=== PATIENT | female | born 1945 | race Caucasian/White ===

== ENCOUNTER 2025-07-29 15:13 | Inpatient (IN) | payer MEDICARE, MEDICAID ==
[~2025-07-29] VITALS: Ht 162.6 cm; Wt 56.7 kg
[~2025-07-29 15:13] MED LIST: BISA10SU62 RC; FAMO20TA8 PO; FERR325T6 MT; LEVO25TA7 MT; LIDO700A30 TP; POLY17PO3 MT; TOPUD PO; TRAM50TA3 MT
[2025-07-29 15:17] VITALS: O2SAT 95
[2025-07-29 16:40] LABS: BASOPHILS % 0.2 % (0.0-2.0); EOSINOPHILS % 3.6 % (0.0-5.0); HEMATOCRIT. 34.8 % (36.0-48.0); HEMOGLOBIN. 11.3 g/dL (12.0-16.0); LYMPHOCYTES % 11.7 % (20.0-50.0); MEAN PLATELET VOLUME 7.3 fl (7.4-10.4); MONOCYTES % 5.2 % (2.0-8.0); NEUTROPHILS % 79.3 % (40.0-76.0); PLATELET 271 x1000/uL (130-400); RED BLOOD CELL COUNT 3.74 mill/uL (4.2-5.4); RED CELL DISTRIBUTION WIDTH 16.5 % (11.6-14.6)
[2025-07-29 16:57] LABS: CREATININE 1.2 mg/dL (0.6-1.0); PROTEIN TOTAL 6.8 g/dL (6.0-8.3); UREA NITROGEN BLOOD 33 mg/dL (9-23)
[2025-07-29 16:59] LABS: ASPARTATE AMINOTRANSFERASE 12 IU/L (<34); BILIRUBIN TOTAL 0.3 mg/dL (0.1-1.0)
[2025-07-29 20:00] VITALS: BP 101/56; PULSE 82; RESP 18; TEMP 36.4; O2SAT 97
[2025-07-29 20:45] VITALS: BP 101/56; PULSE 82; RESP 18; TEMP 36.418
[2025-07-29] MEDS ORDERED: DOCUSATE SODIUM 100MG CAPSULE PO PRN (21:00)
[2025-07-29] MEDS ORDERED: ONDANSETRON HCL 4MG/2ML INJ IV PRN (21:00)
[2025-07-29] MEDS ORDERED: MAGNESIUM/ALUMINUM HYDROXIDE/SIMETHICONE 30ML UDC PO PRN (21:00)
[2025-07-29] MEDS ORDERED: HYDROCODONE/ACETAMINOPHEN 5/325MG TABLET PO PRN (21:00)
[2025-07-29] MEDS ORDERED: CLONIDINE 0.1MG TABLET PO PRN (21:00)
[2025-07-29] MEDS ORDERED: IPRATROPIUM/ALBUTEROL 0.5-3(2.5)MG/3ML NEB HHN PRN (21:00)
[2025-07-29] MEDS ORDERED: POTASSIUM CHLORIDE 20MEQ TABLET SR PO PRN (21:00)
[2025-07-29] MEDS ORDERED: ACETAMINOPHEN 325MG TABLET PO PRN (21:00)
[2025-07-29] MEDS ORDERED: NALOXONE HCL 0.4MG/ML VIAL IV PRN (21:15)
[2025-07-29] MEDS: ENOXAPARIN 40MG/0.4ML SYR SUBCUT SCH (22:30)
[2025-07-30] VITALS: BP 115/55; PULSE 83; RESP 19; TEMP 36.4; O2SAT 94
[2025-07-30 04:00] VITALS: BP 132/66; PULSE 81; RESP 19; TEMP 35.9; O2SAT 95
[2025-07-30 08:00] VITALS: BP 108/60; PULSE 72; RESP 18; TEMP 36.8; O2SAT 97
[2025-07-30 08:10] LABS: CREATININE 1.3 mg/dL (0.6-1.0)
[2025-07-30 08:11] LABS: UREA NITROGEN BLOOD 33 mg/dL (9-23)
[2025-07-30 08:12] LABS: BASOPHILS % 0.4 % (0.0-2.0); EOSINOPHILS % 4.8 % (0.0-5.0); HEMATOCRIT. 33.9 % (36.0-48.0); HEMOGLOBIN. 11.3 g/dL (12.0-16.0); LYMPHOCYTES % 15.7 % (20.0-50.0); MEAN PLATELET VOLUME 7.5 fl (7.4-10.4); MONOCYTES % 6.3 % (2.0-8.0); NEUTROPHILS % 72.8 % (40.0-76.0); PLATELET 284 x1000/uL (130-400); RED BLOOD CELL COUNT 3.68 mill/uL (4.2-5.4); RED CELL DISTRIBUTION WIDTH 16.3 % (11.6-14.6)
[2025-07-30 08:13] LABS: PHOSPHORUS 4.4 mg/dL (2.5-4.9)
[2025-07-30 12:00] VITALS: BP 99/56; PULSE 76; RESP 18; TEMP 37.4; O2SAT 97
[2025-07-30 16:00] VITALS: BP 100/59; PULSE 76; RESP 18; TEMP 36.7; O2SAT 97
[2025-07-30 20:00] VITALS: BP 106/68; PULSE 79; RESP 15; TEMP 36.7; O2SAT 99
[2025-07-30 22:32] LABS: INR 1.0
[2025-07-31] VITALS (15 sets, daily range): BP systolic 107–133; BP diastolic 60–87; PULSE 75–92; RESP 9–18; TEMP 36.2–36.5; O2SAT 95–100
[2025-07-31] MEDS: SODIUM CHLORIDE 0.45% 1,000 ML IV SCH
[2025-07-31] MEDS: LEVOTHYROXINE SODIUM 25MCG TABLET PO SCH (07:20)
[2025-07-31 08:32] LABS: BASOPHILS % 0.4 % (0.0-2.0); EOSINOPHILS % 5.4 % (0.0-5.0); HEMATOCRIT. 32.0 % (36.0-48.0); HEMOGLOBIN. 10.6 g/dL (12.0-16.0); LYMPHOCYTES % 15.3 % (20.0-50.0); MEAN PLATELET VOLUME 7.5 fl (7.4-10.4); MONOCYTES % 7.3 % (2.0-8.0); NEUTROPHILS % 71.6 % (40.0-76.0); PLATELET 257 x1000/uL (130-400); RED BLOOD CELL COUNT 3.46 mill/uL (4.2-5.4); RED CELL DISTRIBUTION WIDTH 16.2 % (11.6-14.6)
[2025-07-31 08:38] LABS: INR 1.0
[2025-07-31] MEDS: LIDOCAINE 5% PATCH TOP SCH (09:00)
[2025-07-31] MEDS: POLYETHYLENE GLYCOL 3350 (17GM) 1 DOSE PACK PO SCH (09:00)
[2025-07-31 09:17] LABS: CREATININE 1.3 mg/dL (0.6-1.0)
[2025-07-31 09:18] LABS: UREA NITROGEN BLOOD 35 mg/dL (9-23)
[2025-07-31 09:20] LABS: PHOSPHORUS 4.0 mg/dL (2.5-4.9)
[2025-07-31] MEDS ORDERED: IOHEXOL-300 100 ML BOTTLE ONE (09:58)
[2025-07-31] MEDS ORDERED: LIDOCAINE HCL 1% 10 MG/ML 10ML VIAL ONE (09:59)
[2025-07-31] MEDS ORDERED: CEFAZOLIN 1000MG PREMIX 50 ML IV ONE (10:00)
[2025-07-31] MEDS: CEFAZOLIN 1000MG PREMIX 50 ML IV NR (10:00)
[2025-07-31] MEDS ORDERED: FENTANYL CITRATE/PF 50MCG/ML 2ML VIAL ONE (11:10)
[2025-07-31] MEDS: DIPHENHYDRAMINE 50MG/ML VIAL IV SCH (14:55)
[2025-08-01 04:00] VITALS: BP 105/55; PULSE 83; RESP 16; TEMP 37.1; O2SAT 97
[2025-08-01 08:00] VITALS: BP 109/60; PULSE 81; RESP 19; TEMP 36.2; O2SAT 95
[2025-08-01 12:00] VITALS: BP 106/56; PULSE 82; RESP 18; TEMP 36.1; O2SAT 96
[2025-08-01 12:32] LABS: BASOPHILS % 0.3 % (0.0-2.0); EOSINOPHILS % 2.6 % (0.0-5.0); HEMATOCRIT. 31.3 % (36.0-48.0); HEMOGLOBIN. 10.4 g/dL (12.0-16.0); LYMPHOCYTES % 11.5 % (20.0-50.0); MEAN PLATELET VOLUME 7.3 fl (7.4-10.4); MONOCYTES % 8.4 % (2.0-8.0); NEUTROPHILS % 77.2 % (40.0-76.0); PLATELET 222 x1000/uL (130-400); RED BLOOD CELL COUNT 3.40 mill/uL (4.2-5.4); RED CELL DISTRIBUTION WIDTH 16.1 % (11.6-14.6)
[2025-08-01 13:00] LABS: CREATININE 1.3 mg/dL (0.6-1.0); PROTEIN TOTAL 6.2 g/dL (6.0-8.3); UREA NITROGEN BLOOD 29 mg/dL (9-23)
[2025-08-01 13:02] LABS: ASPARTATE AMINOTRANSFERASE 10 IU/L (<34); BILIRUBIN TOTAL 0.6 mg/dL (0.1-1.0)
[2025-08-01 13:36] VITALS: BP 106/56; PULSE 82; RESP 18; TEMP 97
[2025-08-01 16:00] VITALS: BP 106/58; PULSE 84; RESP 19; TEMP 36.5; O2SAT 97
== END 2025-08-01 19:25 | DRG 699 ==
LOC: ER 15:13 → 6EST 18:02 → EDBEDREQ 18:11 → EDBEDREQTM 18:11 → ENRESERV 18:42
PROVIDERS: ADMIT Family Medicine Adult Medicine; ATTEND Family Medicine Adult Medicine
PROC: 0T9330Z Drainage of Right Kidney Pelvis with Drainage Device, Percutaneous Approach (ICD-10-PCS; principal; 2025-07-31)
PROC: BT111ZZ Fluoroscopy of Right Kidney using Low Osmolar Contrast (ICD-10-PCS; 2025-07-31)
DX: T83.022A Displacement of nephrostomy catheter, initial encounter (principal); N13.30 Unspecified hydronephrosis; E03.9 Hypothyroidism, unspecified; I10 Essential (primary) hypertension; Y73.2 Prosthetic and other implants, materials and accessory gastroenterology and urology devices associated with adverse incidents; N32.81 Overactive bladder; Z88.5 Allergy status to narcotic agent; K21.9 Gastro-esophageal reflux disease without esophagitis; Y92.89 Other specified places as the place of occurrence of the external cause
CPT/HCPCS: 36415; 50432; 74176; 80048; 80053; 83735; 84100; 85025; 87106; 93970; 96372; 99152; 99153; 99285; C1729; C1769; J0690; J1200; J1650; J2003; J3010; Q9967; G0500